=== PATIENT | female | born 1965 | race Caucasian/White ===

== ENCOUNTER → 2016-12-13 | Outpatient (CLI) | payer BC | LOC: BMCIMAGING 16:44 | PROVIDERS: ATTEND Internal Medicine | DX: S92.425A Nondisplaced fracture of distal phalanx of left great toe, initial encounter for closed fracture (principal) ==

== ENCOUNTER → 2018-03-27 | Outpatient (CLI) | payer BC | LOC: FIMAGING 08:22 | PROVIDERS: ATTEND Internal Medicine | DX: R10.11 Right upper quadrant pain (principal) ==